=== PATIENT | female | born 1955 | race Caucasian/White ===

== ENCOUNTER 2025-01-17 13:33 | Emergency (ER) | payer SELFPAY ==
--- OUTSIDE RECORDS SUMMARY | 2025-01-17 13:44 | XMS_ITS | Patient Health Record ---
Author Organization [facility] Address [address] [place] [address] Care Team Providers Care Brick Grader Name Role Phone MagalieannemaribelEvettery Primary Care Provider Reason For Referral No Information Problems Problem Type SNOMED Code ICD Code Onset Dates Problem Status W/U Status Risk Notes Problem Body mass index 25-29 - overweight (283955159) Body mass index (BMI) 28.0-28.9, adult (Z68.28) Active confirmed Problem Diverticulitis (51825312) Diverticulitis (K57.92) Active confirmed Problem Adult health examination (469147299) Periodic health assessment, general screening, adult (Z00.00) Active confirmed Problem Nicotine user (308772425) Nicotine abuse (Z72.0) Active confirmed Plan Of Treatment No Information Insurance Providers Payer Name Payer Address Payer Phone Subscriber Number Group Number Insured Name Patient Relationship to Insured Coverage Start Date Coverage End Date ANTHEM Primary [address] [place] [phone] [id number] HARRIS DOYLE Self - patient is the insured Medical (General) History Surgical History Surgery Date(Month/Year) gallbladder removed
--- OUTSIDE RECORDS SUMMARY | 2025-01-17 13:45 | XMS_ITS | Clinical Summary ---
Author Organization [facility] ([facility]) Address [address] [place] [address] [address] [place] [address] Care Team Providers Care Supervisor Cutting And Sewing Room Name Role Phone No Pcp, Pcp Primary Care Provider Unavailabl e Source Comments The information that you have received may contain highly confidential and/or federally protected health information. This information has been disclosed to you from records protected by [facility]. The law prohibits you from making any further disclosure of this information unless further disclosure is expressly permitted by the written consent of the person to whom it pertains or is authorized by the Confidentiality of HIV-Related Information Act. A general authorization for the releaseof medical or other information is not sufficient. This information may include information relatedto diagnosis and/or treatment of HIV, mental health, or drug and alcohol-related conditions. Any disclosure, dissemination, distribution, or copying of this information is strictly prohibited. If youfeel that you have received this information in error, please contact the sender immediately.[facility] ([facility]) Allergies Active Allergy Reactions Criticality Noted Date Comments Lisinopril Angioedema 12/08/2021 Medications acetaminophen (TYLENOL) 325 MG tablet Take 650 mg by mouth every 6 (six) hours as needed for mild pain (pain scale 1-3). Active ibuprofen (MOTRIN) 200 MG tablet Take 200 mg by mouth every 6 (six) hours as needed for mild pain (pain scale 1-3). Active cyanocobalamin (VITAMIN B12) 1000 MCG tablet Take 1,000 mcg by mouth daily. Active biotin 1 mg cap Take 1 mg by mouth daily. Active multivitamin (THERAGRAN) tab tablet Take 1 tablet by mouth daily. Active predniSONE (DELTASONE) 10 MG tablet Orally-4 tabs daily x 2 days then 3 tabs daily x 2 days than 2 tabs daily x 2 days then 1 tab daily x 2 days than stop Do not start before December 11, 2021. 20 tablet 12/10/2021 2:06 PM EDT 12/11/2021 Active Active Problems Problem Noted Date Diagnosed Date Angioedema 12/09/2021 Assessment & Plan (12/10/2021 12:45 PM EDT): Anaphylaxis and angioedema Due to lisinopril, now resolving, continue tapering course of steroid. Acute respiratory failure present on admission has resolved now. Patient otherwise hemodynamically stable, allergy list updated, plan for discharge home and follow up with PCP and ENT in outpatient setting. 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 Assessment & Plan (12/09/2021 5:19 PM EDT): ENT consult appreciated, will need close follow-up in outpatient setting Tobacco use 12/09/2021 Assessment & Plan (12/09/2021 5:19 PM EDT): Continue nicotine patch Erythrocytosis 12/09/2021 Primary hypertension 12/09/2021 Assessment & Plan (12/10/2021 12:42 PM EDT): Blood pressure reviewed and remains elevated, plan to continue amlodipine with adding metoprolol, suggest follow up with PCP for further readjustment Resolved Problems Problem Noted Date Diagnosed Date Resolved Date Anaphylaxis 12/08/2021 12/09/2021 Surgical History Surgery Date Site/Laterality Comments CORONARY STENT PLACEMENT Medical History Medical History Date Comments Coronary artery disease Social History Tobacco Use Types Packs/Day Years Used Date Smoking Tobacco: Every Day Cigarettes 1 50 Tobacco Cessation:Ready to Q uit: No; Counseling Given: No Alcohol Use Standard Drinks/Week Comments Never 0 (1 standard drink = 0.6 oz pur e alcohol) PHQ-2 Answer Date Recorded PHQ-9 Total Score 0 12/08/2021 Social Connections Answer Date Recorded How often do you feel that you lack companionshi p? Hardly ever 12/08/2021 How often do you feel left out? Hardly Ever 12/08/2021 How often do you feel isolated from others? Hard ly ever 12/08/2021 Financial Resource Strain Answer Date R ecorded Sometimes people find that t heir income does not quite cover their living costs. In the last 12 months, has this happened to you? Don't know 12/08/2021 What is your current work situation? Not on file 12/08/2021 Stress Answer Date Recorded Over the last 2 weeks, how o ften have you been bothered by the following problems: feeling nervous, anxious, on edge? Not at all 12/08/2021 Over the last 2 weeks, how o ften have you been bothered by the following problems: Not being able to stop or control worrying? Not at all 12/08/2021 Food Insecurity Answer Date Recorded Within the past 12 months we worried whether our food would run out before we got the money to buy more. Sometimes true Within the past 12 months th e food we bought just didn't last and we didn't have money to get more. Sometimes true 12/08/2021 Safety and Environment Answer Date Joe rded Do you feel physically and e motionally safe where you currently live? Yes 12/08/2021 Are you afraid of anyone close to you? No 12/08/2021 Alcohol and Drug Use Answer Date Record ed Females: In the past year, h ave you had more than 7 drinks in one week? Not on file 07/25/2024 Males greater than 65 years of age: In the past year, have you had more than 7 drinks in one week? Unrecognized value Males less than or equal to 65 years of age: In the past year, have you had more than 14 drinks in one week? Unrecognized value 07/25/2024 In the past year, have you u sed any drugs other than those prescribed by your doctor? Not on file 07/25/2024 Transportation Answer Date Recorded Has a lack of transportation kept you from medical appointments, meetings, work, or from getting things needed for daily living? Not on file 05/13/2023 Utilities Answer Date Recorded In the past 12 months has th e electric, gas, oil, or water company threatened to shut off services in your home? Not on file 05/13/2023 Comments Unknown Sex and Gender Information Value Date Recorded Sex Assigned at Not on file Legal Sex Female 9:32 AM EDT Gender Identity Not on file Sexual Orientation Not on file Obstetrics History Last Filed Vital Signs Vital Sign Reading Time Taken Comments Blood Pressure 168/77 12/10/2021 11:15 AM EDT Pulse 111 12/10/2021 8:30 AM EDT Temperature 36.2 C (97.1 F) 12/10/2021 7:00 AM EDT Respiratory Rate 18 12/10/2021 8:30 AM EDT Oxygen Saturation 94% 12/10/2021 8:30 AM EDT Inhaled Oxygen Concentration - - Weight 77.1 kg (170 lb) 12/08/2021 9:36 AM EDT Height - - Body Mass Index - - Plan of Treatment Health Maintenance Due Date Last Done Comments Breast Cancer Screening 1955 PRE-DIABETES SCREENING 1956 HEPATITIS C SCREEN 1974 Social Determinants of Health 1974 DTaP/Tdap/Td Vaccines (1 - Tdap) 09/10/1975 Pneumococcal Vaccine: 50+ Years (1 of 2 - PCV) 09/10/1975 WELL ADULT EXAM [address] COLONGRAPHY 2001 Colon Cancer Screening 2001 Colonoscopy 2001 FIT/FOBT 2001 Sigmoidoscopy 2001 ZOSTER VACCINE (1 of 2) 2006 DXA SCAN 2021 Depression Screen 12/08/2022 12/08/2021 Annual Creatinine 12/09/2022 12/09/2021, 12/08/2021 Annual Potassium 12/09/2022 12/09/2021, 12/08/2021 COVID-19 Vaccine (1 - 2023-2 5 season) 2025 INFLUENZA VACCINES (#1) 2025 RSV Vaccine: Adults (60 yrs and older) and Patients (1 - 1-dose 75+ series) 09/10/2031 Meningococcal B Vaccine Aged Out No l onger eligible based on patient's age to complete this topic ROTAVIRUS VACCINES Aged Out No longer eligible based on patient's age to complete this topic Procedures Procedure Name Priority Date/Time Associated Diagnosis Comments BASIC METABOLIC PANEL Routine 12/09/2021 5:16 AM EDT from Last 3 Months or Most Recently Relevant to Health Maintenance Results * (ABNORMAL) Basic Metabolic Panel (12/09/2021 5:16 AM EDT) Glucose 131(H) 70 - 99 mg/dL 12/09/2021 6:18 AM [facility] Comment: The reference range is for fasting only. Non-fasting glucose reference range: 1 year and above: 70 - 140 mg/dL Reference range not established for 0-11 months BUN 16 8 - 23 mg/dL 12/09/2021 6:18 AM [facility] Creatinine 0.71 0.50 - 0.90 mg/dL 12/09/2021 6:18 AM [facility] eGFR (CKD-EPI) 94 12/09/2021 6:18 AM [facility] Comment:eGFR calculation and reference range based on the Chronic Kidney Disease Epidemiology Collaboration 2020 (CKD-EPI) equation without adjustments for race. ([facility] 385;2020). Sodium 138 136 - 145 mmol/L 12/09/2021 6:18 AM [facility] Potassium 4.5 3.5 - 5.2 mmol/L 12/09/2021 6:18 AM [facility] Comment:Slight Hemolysis. Chloride 104 98 - 107 mmol/L 12/09/2021 6:18 AM [facility] CO2 25 22 - 30 mmol/L 12/09/2021 6:18 AM [facility] Comment:Results Checked Anion Gap 9 7 - 16 mmol/L 12/09/2021 6:18 AM [facility] Calcium 9.6 8.4 - 10.3 mg/dL 12/09/2021 6:18 AM [facility] Blood Blood specimen / Unknown Line / Unknown 12/09/2021 5:16 AM EDT 12/09/2021 5:26 AM EDT Hermelindo Zheng MD LAB BLOOD ORDERABLES Final Result [facility] [address] [place] [address] from Last 3 Months or Most Recently Relevant to Health Maintenance Insurance [employer] [facility] Advance Directives For more information, please contact: [phone] * CPR Status: Yes (Attempt Cardiopulmonary Resuscitation) (Latest Code Status on File) Date Activated Date Inactivated Comments 12/09/2021 8:56 AM 12/10/2021 10:06 PM Question Answer Comments Level of Intervention: Full Medical Treatment (I ntubate if Indicated) Discussed With: Patient Care Teams Supervisor Cutting And Sewing Room Relationship Specialty Start Date End Date No Pcp, Pcp PCP - General 12/30/21
--- OUTSIDE RECORDS SUMMARY | 2025-01-17 13:45 | XMS_ITS | Clinical Summary ---
Author Organization [facility] Address [address] [place] [address] Phone Care Team Providers Care Job Service Consultant Name Role Phone Unavailable Primary Care Provider Unavailabl e Social History Tobacco Use Types Packs/Day Years Used Date Smoking Tobacco: Never Assessed Comments Unknown Sex and Gender Information Value Date Recorded Sex Assigned at Not on file Legal Sex Female 2:33 AM EST Gender Identity Not on file Sexual Orientation Not on file Plan of Treatment Not on file
--- OUTSIDE RECORDS SUMMARY | 2025-01-17 13:45 | XMS_ITS | Clinical Summary ---
Author Organization [facility] Address [address] [place], [place] [address] Care Team Providers Care Dough Mixer Name Role Phone Unavailable Primary Care Provider Unavailabl e Allergies Active Allergy Reactions Criticality Noted Date Comments Lisinopril Angioedema 12/08/2021 Medications ibuprofen (MOTRIN) 200 mg tablet Take 200 mg by mouth every 6 hours as needed. Active Social History Tobacco Use Types Packs/Day Years Used Date Smoking Tobacco: Every Day Cigarettes 1 40 Smokeless Tobacco: Never Tobacco Cessation:Ready to Q uit: Not Asked; Counseling Given: Not Answered Alcohol Use Standard Drinks/Week Comments Never 0 (1 standard drink = 0.6 oz pur e alcohol) Comments No Sex and Gender Information Value Date Recorded Sex Assigned at Not on file Legal Sex Female 4:22 PM EST Gender Identity Not on file Sexual Orientation Not on file Last Filed Vital Signs Vital Sign Reading Time Taken Comments Blood Pressure 129/73 04/21/2024 6:47 AM EST Pulse 66 04/21/2024 6:47 AM EST Temperature 36.7 C (98.1 F) 04/21/2024 6:47 AM EST Respiratory Rate 18 04/21/2024 6:47 AM EST Oxygen Saturation 96% 04/21/2024 6:47 AM EST Inhaled Oxygen Concentration - - Weight 77.1 kg (170 lb) 04/21/2024 6:47 AM EST Height 170.2 cm (5' 7 ) 05/04/2022 5:19 PM EST Body Mass Index 26.63 05/04/2022 5:19 PM EST Plan of Treatment Health Maintenance Due Date Last Done Comments Anxiety Screening 1974 Depression Screening 1974 Hepatitis C Screening 1974 DTaP,Tdap,Td Vaccine (1 - Tdap) 09/10/1975 Pneumococcal Vaccine: 50+ (1 of 2 - PCV) 09/10/[address] Colonography 2001 Cologuard (FIT-DNA) 2001 Colonoscopy 2001 Colorectal Cancer Screening 2001 Fecal Occult Blood 2001 Lipid Screening 2001 Sigmoidoscopy 2001 Lung Cancer Screening 2006 Shingrix Vaccine (1 of 2) 2006 Bone Density Screening 2021 Advance Directive Discussion 05/15/2024 Diabetes Screening 12/09/2024 12/09/2021, 12/08/2021 Influenza Vaccine (#1) 2025 RSV Vaccine (1 - 1-dose 75+ series) 09/10/[address] [place] [address] PPO
[2025-01-17 14:00] VITALS: BP 215/105; PULSE 70; TEMP 36.7; O2SAT 96; BMI 28.2
[2025-01-17 14:35] VITALS: BP 218/106
[2025-01-17] MEDS: FLUORESCEIN SODIUM 1 MG STRIP OP (15:16)
[2025-01-17] MEDS: TETRACAINE HCL 0.5% OP SOL 80 DROP/4 ML BOTTLE OP (15:16)
[2025-01-17] MEDS: OFLOXACIN 0.3% OP SOL 100 DROP/5 ML BOTTLE OP (15:47)
--- NOTE | 2025-01-17 15:47 | ED.GENADUL1 ---
HPI HPI - General Adult General Chief complaint: Eye Problems Stated complaint: R EYE REDNESS Time Seen by Provider: 01/17/25 14:17 Source: patient Mode of arrival: walk-in History of Present Illness HPI narrative: Patient is a 61-year-old female presenting to the emergency department for evaluation of right eye pain and blurry vision. Patient states that she started having pain and itchiness in the eye last night. She states that throughout the day today, symptoms have progressively worsened. She states that the eye is not red and painful. She states that she can only see shadows now. She denies wearing contact lenses. She has any involvement of the left eye. She denies history of glaucoma or any other ocular disease. She denies fevers or chills. No headache or other symptoms. She denies flashes of light or photophobia. Related Data Home Medications ?Medication ?Instructions ?Recorded ?Confirmed No Known Home Medications 01/17/25 01/17/25 Allergies Allergy/AdvReac Type Severity Reaction Status Date / Time No Known Drug Allergies Allergy Verified 01/17/25 14:00 Opioid HPI Opioid Management Most Recent Opioid Data: Last Pain Scale 7 Today, 14:00 Review of Systems ROS Status of ROS 10 or more systems reviewed and unremarkable except as noted in history and below PFSH PFSH Social History Little interest or pleasure in doing things: not at all Feeling down, depressed, or hopeless: not at all Exam Narrative Exam Narrative: CONSTITUTIONAL: Patient appears uncomfortable, but nontoxic. She is mentating appropriately and answering questions/following commands. SKIN: Was warm and dry. EYES: The right eye has significant scleral injection. There is a obvious corneal defects centrally over the pupil seen on plain light. There is milky/purulent drainage from the defect. On fluorescein dye staining there is a corneal abrasion/possible ulceration over the central cornea. Intraocular pressures are 20 and 20 bilaterally. Visual acuity 20/80 on the left, she is only able to see shadows on the right. No periorbital edema or erythema. PERRLA. EOMI. EARS, NOSE, THROAT: Moist oral mucosa. RESPIRATORY: Clear to auscultation bilaterally, no wheezes, crackles, or stridor, no use of accessory muscles CARDIOVASCULAR: Normal rate and regular rhythm. There is no S3, S4, murmur, rub. GASTROINTESTINAL: Abdomen is nondistended. MUSCULOSKELETAL: No peripheral edema. NEUROLOGIC: Patient is awake and alert. Facies were symmetrical. Constitutional Vital Signs, click to edit/add: Last Vital Signs Temp 98.1 F 01/17/25 14:00 Pulse 70 01/17/25 14:00 Resp 16 01/17/25 14:00 BP 174/92 H 01/17/25 15:52 Pulse Ox 96 01/17/25 14:00 O2 Del Method Room Air 01/17/25 14:00 Course Vital Signs Vital signs: Vital Signs Temperature 98.1 F 01/17/25 14:00 Pulse Rate 70 01/17/25 14:00 Respiratory Rate 16 01/17/25 14:00 Blood Pressure 215/105 H 01/17/25 14:00 Pulse Oximetry 96 01/17/25 14:00 Oxygen Delivery Method Room Air 01/17/25 14:00 Temperature 98.1 F 01/17/25 14:00 Pulse Rate 70 01/17/25 14:00 Respiratory Rate 16 01/17/25 14:00 Blood Pressure 174/92 H 01/17/25 15:52 Pulse Oximetry 96 01/17/25 14:00 Oxygen Delivery Method Room Air 01/17/25 14:00 Medical Decision Making MDM Narrative Medical decision making narrative: Patient is a 69-year-old female presenting to the emergency department for evaluation of right eye pain and decreased visual acuity over the last 24 hours. Her vital signs are significant for hypertension, otherwise were within normal limits. She is afebrile and hemodynamically stable. Her ocular examination as noted above. Clinically, I am concerned that the patient may have a corneal ulcer. There is an obvious annular defect that is seen on plain light with milky/purulent drainage from the defect that quickly recollects. She has acutely worsened visual acuity and is only able to see shadows. Low concern for acute angle-closure glaucoma given her normal intraocular pressures. She was empirically treated with ofloxacin eyedrops. I did consult and discuss the patient with ophthalmology (Dr. Collins) at [facility], the closest facility with on-call optho, who are concerned for corneal ulcer as well. They recommend ED to ED transfer for emergent ophthalmology evaluation. The patient was given a dose of moxifloxacin eyedrops, however the utility worker woolen mill recommended against any further antibiotic administration until a culture can be obtained. I discussed the patient with the ED physician who also accepted the transfer. Patient is stable for transfer to higher level of care. She is stable for transfer by private vehicle, she has a safe ride to the hospital with her friend. FINAL IMPRESSION: #Acute right sided corneal ulcer DISPOSITION: Transfer to [facility] CONDITION: Fair Discharge Plan Discharge Chief Complaint: Eye Problems Clinical Impression: Corneal ulcer of right eye Patient Disposition: [facility] Time of Disposition Decision: 16:18 Discharge Location: [facility] Condition: Fair Mode of Transportation: Private Vehicle
[2025-01-17 15:52] VITALS: BP 174/92
--- NOTE | 2025-01-17 16:13 | PC.NURSE ---
Pt made aware of planned transfer She will be going by private car ER to ER to [facility] Pt agreeable with this plan
== END 2025-01-17 16:24 | disposition short-term general hospital (02) ==
PROVIDERS: Emergency Provider Student in an Organized Health Care Education/Training Program
DX: H16.001 Unspecified corneal ulcer, right eye (principal)
CPT/HCPCS: 99285